=== PATIENT | male | born 1985 | race Caucasian/White ===

== ENCOUNTER 2019-05-30 09:46 | Day surgery (SDC) | payer OTHER ==
[2019-05-30 10:24] LABS: Bilirubin,Urine NEG (Negative); Blood,Urine MOD (Negative); Color,Urine Yellow (Yellow); Protein,Urine <15 mg/dL mg/dL (Negative); Urobilinogen,Urine < 2.0 mg/dL (<2.0)
[2019-05-30] MEDS ORDERED: TORADOL IM ONE (11:31)
[2019-05-30] MEDS ORDERED: NACL 0.9% 1000 ML 1,000 ML IV ONE (11:31)
--- NOTE | 2019-05-30 13:05 | Emergency Department Report ---
ED Abdominal Pain HPI - General Chief Complaint: Abdominal Pain Stated Complaint: KIDNEY STONE Time Seen by Provider: 05/30/19 11:05 Source: patient Mode of arrival: Ambulatory Limitations: No Limitations - History of Present Illness Initial Comments: 34-year-old male presents to the emergency room complaining of right flank pain and was recently diagnosed with kidney stones. Patient reports that he's been referred for surgery but has not yet scheduled. Patient reports this pain for 3-4 out of 10. He is followed by . Patient has a past medical history of GERD and kidney stones with a surgical history of lithotripsy 3. Patient has been evaluated from [facility] per patient. Complaint: flank pain - Related Data Allergies Allergy/AdvReac Type Severity Reaction Status Date / Time hydromorphone [From Dilaudid] AdvReac Unknown Verified 05/30/19 09:53 ED Review of Systems ROS: Stated complaint: KIDNEY STONE Other details as noted in HPI ED Past Medical Hx - Past Medical History Previous Medical History?: Yes Hx GERD: Yes - Surgical History Past Surgical History?: Yes Additional Surgical History: lithotripsy x 3 - Social History Smoking Status: Never Smoker Substance Use Type: Alcohol ED Physical Exam - General Limitations: No Limitations ED Course Vital Signs 05/30/19 09:50 Temperature 98.3 F Pulse Rate 60 Respiratory 20 Rate Blood Pressure 149/104 O2 Sat by Pulse 100 Oximetry ED Medical Decision Making - Radiology Data Radiology results: report reviewed Patient: MADDY ABRAHAM MR#: [id number] : 1985 Acct:[id number] Age/Sex: 34 / M ADM Date: 05/30/19 Loc: ED Attending Dr: Ordering Physician: KVNG CARTER MD Date of Service: 05/30/19 Procedure(s): CT abdomen pelvis wo con Accession Number(s): [id number] cc: KVNG CARTER MD CT ABDOMEN AND PELVIS WITHOUT CONTRAST INDICATION / CLINICAL INFORMATION: flank pain, hematuria. History of kidney stones. TECHNIQUE: Axial CT images were obtained through the abdomen and pelvis without IV contrast. All CT scans at this location are performed using CT dose reduction for ALARA by means of automated exposure control. COMPARISON: None available. FINDINGS: LOWER CHEST: No significant abnormality. LIVER: No significant abnormality. GALLBLADDER: No significant abnormality. BILE DUCTS: No significant abnormality. PANCREAS: No significant abnormality. SPLEEN: No significant abnormality. ADRENALS: No significant abnormality. RIGHT KIDNEY and URETER: 7 x 4 mm stone in the mid right ureter at the level of the pelvic brim as seen on axial series 4 image 71 and coronal image 64. There is moderate right hydroureteronephrosis with mild perinephric stranding. LEFT KIDNEY and URETER: Nonobstructing stones in the lower pole. No ureteral stone or hydronephrosis. STOMACH and SMALL BOWEL: No significant abnormality. COLON: No significant abnormality. APPENDIX: No significant abnormality. PERITONEUM: No free fluid. No free air. No fluid collection. LYMPH NODES: No significant adenopathy. AORTA and ARTERIES: No significant abnormality. IVC and VEINS: No significant abnormality. URINARY BLADDER: No significant abnormality. REPRODUCTIVE ORGANS: No significant abnormality. ADDITIONAL FINDINGS: None. SKELETAL SYSTEM: No significant abnormality. IMPRESSION: 1. 7 x 4 mm obstructing stone in the mid right ureter with moderate right hydroureteronephrosis. 2. Left nephrolithiasis but no ureteral stone or hydronephrosis. Signer Name: Gianni Rivers MD Signed: 05/30/2019 2:57 PM Workstation Name: [id number] Transcribed By: DT Dictated By: Geo Rivers MD Electronically Authenticated By: Geo Rivers MD Signed Date/Time: 05/30/191456 DD/ 53 TD/TT: - Medical Decision Making 34-year-old male presents to the emergency room complaining of right flank pain and was recently diagnosed with kidney stones. Patient reports that he's been referred for surgery but has not yet scheduled. Patient reports this pain for 3-4 out of 10. He is followed by . Patient has a past medical history of GERD and kidney stones with a surgical history of lithotripsy 3. Patient has been evaluated from [facility] per patient. IV normal saline 1 L. Call made to but he called back only to speak with nursing staff. Called to speak with Dr. Tripp he told me that the patient is going to the OR when cleared. First times speaking to Dr. Tripp at 1526. Patient is cleared from ER stand point. Critical care attestation.: If time is entered above; I have spent that time in minutes in the direct care of this critically ill patient, excluding procedure time. ED Disposition Clinical Impression: Hydronephrosis with renal and ureteral calculous obstruction Disposition: OP ADMIT IP TO THIS HOSP Is pt being admited?: Yes Does the pt Need Aspirin: No Condition: Stable
--- NOTE | 2019-05-30 15:01 | Cat Scan Report ---
CT ABDOMEN AND PELVIS WITHOUT CONTRAST INDICATION / CLINICAL INFORMATION: flank pain, hematuria. History of kidney stones. TECHNIQUE: Axial CT images were obtained through the abdomen and pelvis without IV contrast. All CT scans at [facility] location are performed using CT dose reduction for ALARA by means of automated exposure control. COMPARISON: None available. FINDINGS: LOWER CHEST: No significant abnormality. LIVER: No significant abnormality. GALLBLADDER: No significant abnormality. BILE DUCTS: No significant abnormality. PANCREAS: No significant abnormality. SPLEEN: No significant abnormality. ADRENALS: No significant abnormality. RIGHT KIDNEY and URETER: 7 x 4 mm stone in the mid right ureter at the level of the pelvic brim as se en on axial series 4 image 71 and coronal image 64. There is moderate right hydroureteronephrosis wit h mild perinephric stranding. LEFT KIDNEY and URETER: Nonobstructing stones in the lower pole. No ureteral stone or hydronephrosis. STOMACH and SMALL BOWEL: No significant abnormality. COLON: No significant abnormality. APPENDIX: No significant abnormality. PERITONEUM: No free fluid. No free air. No fluid collection. LYMPH NODES: No significant adenopathy. AORTA and ARTERIES: No significant abnormality. IVC and VEINS: No significant abnormality. URINARY BLADDER: No significant abnormality. REPRODUCTIVE ORGANS: No significant abnormality. ADDITIONAL FINDINGS: None. SKELETAL SYSTEM: No significant abnormality. IMPRESSION: 1. 7 x 4 mm obstructing stone in the mid right ureter with moderate right hydroureteronephrosis. 2. Left nephrolithiasis but no ureteral stone or hydronephrosis. Signer Name: Gianni Rivers MD Signed: 05/30/2019 2:57 PM Workstation Name: [id number]
--- NOTE | 2019-05-30 16:06 | Anesthesia Consultation ---
Anesthesia Consult and Med Hx Date of service: 05/30/19 - Airway Anesthetic Teeth Evaluation: Good ROM Head & Neck: Adequate Mental/Hyoid Distance: Adequate Mallampati Class: Class III Intubation Access Assessment: Possibly Difficult - Pulmonary Exam CTA: Yes - Cardiac Exam Cardiac Exam: RRR - Pre-Operative Health Status ASA Pre-Surgery Classification: ASA1 Proposed Anesthetic Plan: General - Pulmonary Hx Smoking: No Hx Respiratory Symptoms: No - Cardiovascular System Hx Hypertension: No Hx Heart Attack/AMI: No Hx Percutaneous Transluminal Coronary Angioplasty (PTCA): No Hx Cardia Arrhythmia: No - Central Nervous System Hx Seizures: No CVA: No - Gastrointestinal Hx Gastroesophageal Reflux Disease: Yes (on multiple medications. Asympmatic today.) - Endocrine Hx Renal Disease: No (right hydronephrosis 2/2 renal stone) Hx Liver Disease: No Hx Insulin Dependent Diabetes: No Hx Non-Insulin Dependent Diabetes: No Hx Thyroid Disease: No - Other Systems Hx Obesity: No - Additional Comments Anesthesia Medical History Comments: No hx anesthetic complications.
[2019-05-30] MEDS ORDERED: SUBLIMAZE IV PRN (16:07)
[2019-05-30] MEDS ORDERED: REGLAN IV PRN (16:07)
[2019-05-30] MEDS ORDERED: ZOFRAN IV PRN (16:07)
--- NOTE | 2019-05-30 16:07 | Anesthesia Day of Surgery ---
Anesthesia Day of Surgery - Day of Surgery Patient Examined: Yes Patient H&P Reviewed: Yes Patient is NPO: Yes
[2019-05-30] MEDS ORDERED: OMNIPAQUE 300 MG/50 ML (CATH LAB) IV ONE (16:56)
[2019-05-30] MEDS ORDERED: PERCOCET 5/325 PO PRN (18:41)
--- NOTE | 2019-05-30 19:08 | Operative Report ---
PREOPERATIVE DIAGNOSIS: Severe right flank pain unremitting, very difficult stone to see on x-ray. POSTOPERATIVE DIAGNOSIS: Severe right flank pain unremitting, very difficult stone to see on x-ray. PROCEDURE: Cystoscopy, right retrograde, right ureteroscopy, laser lithotripsy, double-J stent. SURGEON: Morteza Stringer MD ANESTHESIA: General. FINDINGS: This is a gentleman who came weeks of severe pain. We were going to do lithotripsy on Thursday. We could not see the stone well. He refused the stent then. He now presents for treatment. DESCRIPTION OF PROCEDURE: The patient was brought to the operating room from the Emergency Room where he was having pain and placed on the operating table. Following the induction of anesthesia, he was placed in lithotomy position, prepped and draped in usual sterile fashion. Again, the stone was very difficult to see on the KUB. Retrograde showed where the stone was, but it was difficult imaging. A wire coiled in the kidney. A double lumen catheter was placed and the ureteroscopy up to the stone showed an impacted stone in the mid ureter. This was wedged into the lateral wall of the ureter. With the flexible ureteroscope, we got up to the stone and lasered it into pieces. There was still a significant piece in the lateral wall, which we had difficult to accessing because of some of the edema. The patient tolerated the procedure well. A double-J coiled in the kidney and bladder. We notified the family, he will need a staged procedure. JOB# [id number] SURJIT/GARY
--- NOTE | 2019-05-30 19:13 | Post Anesthesia Evaluation ---
- Post Anesthesia Evaluation Patient Participated: Yes Airway Patent: Yes Stable Respiratory Function: Yes Nausea/Vomiting: No Temp > 96.8F: Yes Pain Manageable: Yes Adequeate Hydration: Yes Anesthesia Complications: No
[2019-05-30 19:24] VITALS: BP 132/78
--- NOTE | 2019-05-31 10:05 | Fluoroscopy Report ---
5 fluoroscopic images submitted Indication: Intraoperative localization Impression: 5 images of the abdomen were submitted for documentation purposes with radiology involve ment. There was a right-sided retrograde pyelogram with ureteral stone removal and double-J ureteral stent placement. Please refer to the operative note for complete details. Fluoroscopic time: 1 minute and 1 second Signer Name: Marcel Tidwell MD Signed: 05/30/2019 10:48 PM Workstation Name: [id number]
== END 2019-05-30 09:47 | disposition home or self-care (01) ==
LOC: OR 09:46 → ED 09:46 → OR 09:47 → EDSTATUS 16:21
PROVIDERS: ATTEND Emergency Medicine
DX: N13.2 Hydronephrosis with renal and ureteral calculous obstruction (principal); K21.9 Gastro-esophageal reflux disease without esophagitis; Z79.899 Other long term (current) drug therapy; Z88.8 Allergy status to other drugs, medicaments and biological substances
CPT/HCPCS: 52356; 74176; 74420; 81001; 87086; C1726; C1758; C1769; C2617; J7030; Q9967; J1885